=== PATIENT | male | born 2000 | race African-American/Black ===

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

== ENCOUNTER 2020-05-23 15:39 | Emergency (ER) | payer OTHER ==
--- OUTSIDE RECORDS SUMMARY | 2020-05-23 15:44 | XMS REPORT | Continuity of Care Document ---
:2000 Author Organization [facility] Address [address] [place] [address] Dr. Gold [address] [place] [id number] Care Team Providers Name Role Phone Unavailable Unavailable Unavailable Problems This patient has no known problems. Allergies, Adverse Reactions, Alerts This patient has no known allergies or adverse reactions. Medications This patient has no known medications. Procedures This patient has no known procedures. Results This patient has no known results.
[2020-05-23] MEDS ORDERED: IBUPROFEN 400 MG TAB ONE (16:39)
[2020-05-23] MEDS ORDERED: IBUPROFEN 200 MG TAB PO ONE (16:39)
--- NOTE | 2020-05-23 16:51 | RAD REPORT ---
EXAM DESCRIPTION: RAD - Hand Left 3 View - 05/23/2020 4:20 pm CLINICAL HISTORY: PAIN COMPARISON: No comparisons FINDINGS: No bone or joint abnormality detected.
--- NOTE | 2020-05-23 16:53 | EDPHYS ---
Physician Documentation [facility] Name: Vicente Villeda Age: 19 yrs Sex: Male : 2000 Arrival Date: 05/23/2020 Time: 15:50 Bed 15 Private MD: ED Physician Cali Ellison HPI: 05/23 16:16 This 19 yrs old Black Male presents to ER via Ambulatory with complaints of Arm Pain, kb Numbness Of Arm. 16:16 The complaints affect the. The patient has not experienced similar symptoms in the kb past. The patient has not recently seen a physician. 16:20 The patient or guardian reports pain, tingling. The complaints affect the dorsal aspect kb of distal phalanx of left middle finger. Context: The problem was sustained at an unknown location, resulted from an unknown cause. Onset: The symptoms/episode began/occurred today. Modifying factors: The symptoms are alleviated by nothing, the symptoms are aggravated by movement, palpation. Associated signs and symptoms: The patient has no apparent associated signs or symptoms. Severity of symptoms: At their worst the symptoms were mild, in the emergency department the symptoms are unchanged. Historical: - Allergies: 15:55 No Known Allergies; ll1 - PMHx: 15:55 ADD/ADHD; Asthma; ll1 - PSHx: 15:55 None; ll1 - Immunization history:: Flu vaccine is up to date. - Social history:: Smoking status: Patient reports the use of cigarette tobacco products, smokes one-half pack cigarettes per day, Patient uses alcohol, only on a social basis. street drugs, marijuana, Patient/guardian denies using IV drugs. ROS: 16:14 Constitutional: Negative for fever, chills, and weight loss, Cardiovascular: Negative kb for chest pain, palpitations, and edema, Respiratory: Negative for shortness of breath, cough, wheezing, and pleuritic chest pain, Abdomen/GI: Negative for abdominal pain, nausea, vomiting, diarrhea, and constipation, Back: Negative for injury and pain, Skin: Negative for injury, rash, and discoloration, Neuro: Negative for headache, weakness, numbness, tingling, and seizure. 16:14 MS/extremity: Positive for pain, paresthesias, of the dorsal aspect of distal phalanx of left middle finger. Exam: 16:14 Constitutional: This is a well developed, well nourished patient who is awake, alert, kb and in no acute distress. Head/Face: Normocephalic, atraumatic. Chest/axilla: Normal chest wall appearance and motion. Nontender with no deformity. No lesions are appreciated. Cardiovascular: Regular rate and rhythm with a normal S1 and S2. No gallops, murmurs, or rubs. Normal PMI, no JVD. No pulse deficits. Respiratory: Lungs have equal breath sounds bilaterally, clear to auscultation and percussion. No rales, rhonchi or wheezes noted. No increased work of breathing, no retractions or nasal flaring. Abdomen/GI: Soft, non-tender, with normal bowel sounds. No distension or tympany. No guarding or rebound. No evidence of tenderness throughout. Skin: Warm, dry with normal turgor. Normal color with no rashes, no lesions, and no evidence of cellulitis. MS/ Extremity: Pulses equal, no cyanosis. Neurovascular intact. Full, normal range of motion. Neuro: Awake and alert, GCS 15, oriented to person, place, time, and situation. Cranial nerves II-XII grossly intact. Motor strength 5/5 in all extremities. Sensory grossly intact. Cerebellar exam normal. Normal gait. Vital Signs: 15:56 BP 105 / 54; Pulse 68; Resp 17; Temp 98.7; Pulse Ox 98% ; Weight 68.04 kg; Height 5 ft. ll1 7 in. (170.18 cm); Pain 7/10; 17:13 BP 117 / 59; Pulse 51; Resp 17; Pulse Ox 99% on R/A; tw2 15:56 Body Mass Index 23.49 (68.04 kg, 170.18 cm) ll1 MDM: 15:58 Patient medically screened. kb 16:14 Data reviewed: vital signs, nurses notes. Data interpreted: Pulse oximetry: on room air kb is 98 %. Interpretation: normal. 16:15 ED course: Pt reports pain upon palpation of distal left third digit. States sensation kb is decreased to proximal left third digit. No redness, swelling, warmth or other signs of infection, no signs of trauma. . 16:52 Counseling: I had a detailed discussion with the patient and/or guardian regarding: the kb historical points, exam findings, and any diagnostic results supporting the discharge/admit diagnosis, radiology results, the need for outpatient follow up, a family practitioner, to return to the emergency department if symptoms worsen or persist or if there are any questions or concerns that arise at home. 05/23 16:02 Order name: Hand Left 3 View XRAY kb 05/23 16:52 Order name: RAD; Complete Time: 16:52 EDMS Administered Medications: 16:31 Drug: Ibuprofen 600 mg Route: PO; tw2 17:13 Follow up: Response: No adverse reaction tw2 Disposition: 05/24 07:58 Co-signature as Attending Physician, Cali Ellison MD I agree with the assessment and kdr plan of care. Disposition: 05/23/20 16:53 Discharged to Home. Impression: Pain in left finger(s). - Condition is Stable. - Discharge Instructions: Musculoskeletal Pain. - Medication Reconciliation Form, Thank You Letter, Antibiotic Education, Prescription Opioid Use, Work release form form. - Follow up: Emergency Department; When: As needed; Reason: Worsening of condition. Follow up: Private Physician; When: 2 - 3 days; Reason: Recheck today's complaints, Continuance of care, Re-evaluation by your physician. Signatures: Dispatcher [employer] EDMS Radha Chandra, VIDEOTAPE SALES REPRESENTATIVE-C VIDEOTAPE SALES REPRESENTATIVE-Cali Rodriguez MD MD kdr Dacia Torres RN RN tw2 Fam Serrano RN RN ll1 Corrections: (The following items were deleted from the chart) 05/23 17:14 16:53 05/23/2020 16:53 Discharged to Home. Impression: Pain in left finger(s). tw2 Condition is Stable. Forms are Work release form, Medication Reconciliation Form, Thank You Letter, Antibiotic Education, Prescription Opioid Use. Follow up: Emergency Department; When: As needed; Reason: Worsening of condition. Follow up: Private Physician; When: 2 - 3 days; Reason: Recheck today's complaints, Continuance of care, Re-evaluation by your physician. kb
--- NOTE | 2020-05-23 16:53 | ER ---
Nurse's Notes [facility] Name: Vicente Villeda Age: 19 yrs Sex: Male : 2000 Arrival Date: 05/23/2020 Time: 15:50 Bed 15 Private MD: Diagnosis: Pain in left finger(s) Presentation: 05/23 15:56 Chief complaint: Patient states: Left hand middle finger sharp stinging pain noticed ll1 today while working. No strenuous activity or trauma. Works outside at [employer]. States left hand feels numb/tingling. Coronavirus screen: Client denies travel out of the [place] in the last 14 days. At this time, the client does not indicate any symptoms associated with coronavirus-19. Ebola Screen: Patient denies travel to an Ebola-affected area in the 21 days before illness onset. Initial Sepsis Screen: Does the patient meet any 2 criteria? No. Patient's initial sepsis screen is negative. Risk Assessment: Do you want to hurt yourself or someone else? Patient reports no desire to harm self or others. Onset of symptoms was May 23, 2020. 15:56 Method Of Arrival: Ambulatory ll1 15:56 Acuity: ALICE 4 ll1 Historical: - Allergies: 15:55 No Known Allergies; ll1 - PMHx: 15:55 ADD/ADHD; Asthma; ll1 - PSHx: 15:55 None; ll1 - Immunization history:: Flu vaccine is up to date. - Social history:: Smoking status: Patient reports the use of cigarette tobacco products, smokes one-half pack cigarettes per day, Patient uses alcohol, only on a social basis. street drugs, marijuana, Patient/guardian denies using IV drugs. Screenin:33 Abuse screen: Denies threats or abuse. Nutritional screening: No deficits noted. tw2 Tuberculosis screening: No symptoms or risk factors identified. Fall Risk None identified. Assessment: 16:33 Reassessment: Patient appears in no apparent distress at this time. No changes from tw2 previously documented assessment. Patient and/or family updated on plan of care and expected duration. Pain level reassessed. Patient is alert, oriented x 3, equal unlabored respirations, skin warm/dry/pink. 16:35 General: Appears in no apparent distress. slender, well groomed, Behavior is calm, tw2 cooperative, appropriate for age. Pain: Complains of pain in dorsal aspect of distal phalanx of left middle finger. Neuro: Level of Consciousness is awake, alert, obeys commands, Oriented to person, place, time, situation. Cardiovascular: Capillary refill < 3 seconds Patient's skin is warm and dry. Respiratory: No deficits noted. Airway is patent Respiratory effort is even, unlabored. GI: No signs and/or symptoms were reported involving the gastrointestinal system. : No signs and/or symptoms were reported regarding the genitourinary system. EENT: No signs and/or symptoms were reported regarding the EENT system. Derm: No signs and/or symptoms reported regarding the dermatologic system. Musculoskeletal: Circulation, motion, and sensation intact. Range of motion: intact in all extremities. 17:13 Reassessment: Patient appears in no apparent distress at this time. No changes from tw2 previously documented assessment. Patient and/or family updated on plan of care and expected duration. Pain level reassessed. Patient is alert, oriented x 3, equal unlabored respirations, skin warm/dry/pink. Vital Signs: 15:56 BP 105 / 54; Pulse 68; Resp 17; Temp 98.7; Pulse Ox 98% ; Weight 68.04 kg; Height 5 ft. ll1 7 in. (170.18 cm); Pain 7/10; 17:13 BP 117 / 59; Pulse 51; Resp 17; Pulse Ox 99% on R/A; tw2 15:56 Body Mass Index 23.49 (68.04 kg, 170.18 cm) ll1 ED Course: 15:50 Patient arrived in ED. fj1 15:57 Triage completed. ll1 15:58 Radha Chandra FNP-C [facility]. kb 15:58 Cali Ellison MD is Attending Physician. kb 15:58 Arm band placed on Patient placed in an exam room, on a stretcher. ll1 15:58 Bed in low position. Call light in reach. Pulse ox on. NIBP on. tw2 16:27 Dacia Torres, FELIPE is Primary Nurse. tw2 17:14 No provider procedures requiring assistance completed. Patient did not have IV access tw2 during this emergency room visit. Administered Medications: 16:31 Drug: Ibuprofen 600 mg Route: PO; tw2 17:13 Follow up: Response: No adverse reaction tw2 Outcome: 16:53 Discharge ordered by MD. bello 17:14 Discharged to home ambulatory. tw2 17:14 Condition: stable 17:14 Discharge instructions given to patient, Instructed on discharge instructions, follow up and referral plans. Demonstrated understanding of instructions, follow-up care. 17:14 Patient left the ED. tw2 Signatures: Radha Chandra, MED PEDS-C MED PEDS-Dacia Kumar RN RN tw2 Jim Purdy fj1 Fam Serrano RN RN ll1
[2020-05-23 17:24] VITALS: TEMP 98.7
[2020-05-23 17:25] VITALS: BP 117/59; O2SAT 99
== END 2020-05-23 17:14 | disposition home or self-care (01) ==
LOC: ER 15:39
DX: M79.645 Pain in left finger(s) (principal); F17.210 Nicotine dependence, cigarettes, uncomplicated; F12.90 Cannabis use, unspecified, uncomplicated
CPT/HCPCS: 99283

== ENCOUNTER 2020-05-25 01:35 | Emergency (ER) | payer OTHER ==
--- OUTSIDE RECORDS SUMMARY | 2020-05-25 01:37 | XMS REPORT | Continuity of Care Document ---
:2000 Author Organization [facility] t Address [address] [place] [address] Care Team Providers Name Role Phone Unavailable Unavailable Unavailable Problems This patient has no known problems. Allergies, Adverse Reactions, Alerts This patient has no known allergies or adverse reactions. Medications This patient has no known medications. Procedures This patient has no known procedures. Results This patient has no known results.
[2020-05-25 02:30] LABS: Urine Blood TRACE (NEG); Urine Glucose NEGATIVE (NEG); Urine Protein NEGATIVE (NEG)
--- NOTE | 2020-05-25 02:54 | ER ---
Nurse's Notes [facility] Name: Vicente Villeda Age: 19 yrs Sex: Male : 2000 Arrival Date: 05/25/2020 Time: 01:38 Bed 20 Private MD: Joey Vasques H Diagnosis: Pain in left hip Presentation: 05/25 01:46 Chief complaint: Patient states: Pt reports he started having left hip pain yesterday. ea Denies injury to area. Coronavirus screen: At this time, the client does not indicate any symptoms associated with coronavirus-19. Ebola Screen: No symptoms or risks identified at this time. Initial Sepsis Screen: Does the patient meet any 2 criteria? No. Patient's initial sepsis screen is negative. Does the patient have a suspected source of infection? No. Patient's initial sepsis screen is negative. Risk Assessment: Do you want to hurt yourself or someone else? Patient reports no desire to harm self or others. Onset of symptoms was May 25, 2020. 01:46 Method Of Arrival: Ambulatory ea 01:46 Acuity: ALICE 3 ea Historical: - Allergies: 01:49 No Known Allergies; ea - Home Meds: 01:49 ADHD medication [Active]; ea - PMHx: 01:49 Asthma; ADD/ADHD; ea - PSHx: 01:49 None; ea - Immunization history:: Adult Immunizations up to date. - Social history:: Smoking status: unknown. Screenin:48 Abuse screen: Denies threats or abuse. Nutritional screening: No deficits noted. ea Tuberculosis screening: No symptoms or risk factors identified. Fall Risk None identified. Assessment: 01:55 General: Appears in no apparent distress. Behavior is calm, cooperative, appropriate wh for age. Pain: Complains of pain in left hip and left low back Pain does not radiate. Pain currently is 9 out of 10 on a pain scale. Quality of pain is described as aching, Pain began suddenly. Neuro: Level of Consciousness is awake, alert, obeys commands, Oriented to person, place, time, situation, Appropriate for age. Cardiovascular: Capillary refill < 3 seconds. Respiratory: Airway is patent Respiratory effort is even, unlabored, Respiratory pattern is regular, symmetrical. GI: Abdomen is flat, non-distended. : No signs and/or symptoms were reported regarding the genitourinary system. EENT: No signs and/or symptoms were reported regarding the EENT system. Derm: Skin is intact, is healthy with good turgor, Skin is pink, warm \T\ dry. normal. Musculoskeletal: Circulation, motion, and sensation intact. 02:53 Reassessment: Patient appears in no apparent distress at this time. No changes from previously documented assessment. Patient and/or family updated on plan of care and expected duration. Pain level reassessed. Patient is alert, oriented x 3, equal unlabored respirations, skin warm/dry/pink. Vital Signs: 01:46 BP 114 / 66; Pulse 53; Resp 18; Pulse Ox 99% ; Weight 72.57 kg; Height 5 ft. 6 in. ea (167.64 cm); 02:54 BP 115 / 65; Pulse 48; Resp 18; Pulse Ox 98% ; wh 01:46 Body Mass Index 25.82 (72.57 kg, 167.64 cm) ED Course: 01:38 Patient arrived in ED. es 01:39 Joey Vasques DO is Private Physician. es 01:41 [facility]C [facility] kb 01:41 Shabbir Araiza MD is Attending Physician. kb 01:46 Samra Jean Baptiste is Primary Nurse. wh 01:48 Triage completed. ea 01:49 Arm band placed on right wrist. Patient placed in an exam room, in a wheelchair, on ea pulse oximetry. 01:49 Patient has correct armband on for positive identification. Bed in low position. Call ea light in reach. 03:06 No provider procedures requiring assistance completed. Patient did not have IV access during this emergency room visit. Administered Medications: 02:49 Drug: TORadol 30 mg Route: IM; Site: right gluteus; 03:07 Follow up: Response: No adverse reaction; Pain is decreased Outcome: 02:54 Discharge ordered by . kb 03:06 Discharged to home via wheelchair. wh 03:06 Condition: stable 03:06 Discharge instructions given to patient, Instructed on discharge instructions, follow up and referral plans. medication usage, POC Demonstrated understanding of instructions, follow-up care, medications, POC Prescriptions given X 2. 03:07 Patient left the ED. Signatures: Radha Chandra FNP-C [employer] [employer] Blanca Kang Elena, RN RN Samra Goldstein
--- NOTE | 2020-05-25 02:54 | EDPHYS ---
Physician Documentation [facility] Name: Vicente Villeda Age: 19 yrs Sex: Male : 2000 Arrival Date: 05/25/2020 Time: 01:38 Bed 20 Private MD: Joey Vasques H ED Physician Shabbir Araiza HPI: 05/25 01:49 This 19 yrs old Black Male presents to ER via Ambulatory with complaints of Flank Pain. kb 01:49 The patient or guardian reports pain. that occurred at home, sustained from unknown kb reason, There is no obvious deformity, The patient is able to self ambulate. The patient is able to bear their full body weight. There is no radiation of the patient's discomfort. The complaints affect the left hip. Onset: The symptoms/episode began/occurred just prior to arrival. Modifying factors: The symptoms are alleviated by nothing, the symptoms are aggravated by flexion, weight bearing. Associated signs and symptoms: Loss of consciousness: the patient experienced no loss of consciousness, Pertinent positives: None. Pertinent negatives: abdominal pain, altered mental status, anorexia, chest pain, diarrhea, dizziness, dysuria, fever, headache, incontinence, nausea, shortness of breath, vomiting, weakness. Severity of symptoms: At their worst the symptoms were moderate, in the emergency department the symptoms are unchanged. The patient has not experienced similar symptoms in the past. The patient has not recently seen a physician. Pt reports he woke up with pain to left hip. Denies injury/trauma. Denies urinary symptoms or flank pain. . Historical: - Allergies: :49 No Known Allergies; ea - Home Meds: :49 ADHD medication [Active]; ea - PMHx: 01:49 Asthma; ADD/ADHD; ea - PSHx: 01:49 None; ea - Immunization history:: Adult Immunizations up to date. - Social history:: Smoking status: unknown. ROS: 01:47 Constitutional: Negative for fever, chills, and weight loss, Cardiovascular: Negative kb for chest pain, palpitations, and edema, Respiratory: Negative for shortness of breath, cough, wheezing, and pleuritic chest pain, Abdomen/GI: Negative for abdominal pain, nausea, vomiting, diarrhea, and constipation, Skin: Negative for injury, rash, and discoloration, Neuro: Negative for headache, weakness, numbness, tingling, and seizure. 01:47 Back: Positive for pain at rest, pain with movement, of the left low back. 01:47 MS/extremity: Positive for pain, tenderness, of the left hip. Exam: 01:47 Constitutional: This is a well developed, well nourished patient who is awake, alert, kb and in no acute distress. Head/Face: Normocephalic, atraumatic. Chest/axilla: Normal chest wall appearance and motion. Nontender with no deformity. No lesions are appreciated. Cardiovascular: Regular rate and rhythm with a normal S1 and S2. No gallops, murmurs, or rubs. Normal PMI, no JVD. No pulse deficits. Respiratory: Lungs have equal breath sounds bilaterally, clear to auscultation and percussion. No rales, rhonchi or wheezes noted. No increased work of breathing, no retractions or nasal flaring. Abdomen/GI: Soft, non-tender, with normal bowel sounds. No distension or tympany. No guarding or rebound. No evidence of tenderness throughout. Skin: Warm, dry with normal turgor. Normal color with no rashes, no lesions, and no evidence of cellulitis. Neuro: Awake and alert, GCS 15, oriented to person, place, time, and situation. Cranial nerves II-XII grossly intact. Motor strength 5/5 in all extremities. Sensory grossly intact. Cerebellar exam normal. Normal gait. 01:47 Back: pain, that is moderate, of the left low back, ROM is normal, normal spinal alignment noted, CVA tenderness, is absent. 01:47 Musculoskeletal/extremity: Extremities: grossly normal except: noted in the left hip: pain, tenderness, ROM: limited passive range of motion due to pain, in the left hip, Circulation is intact in all extremities. Sensation intact. Weight bearing: able to fully bear weight. Vital Signs: 01:46 BP 114 / 66; Pulse 53; Resp 18; Pulse Ox 99% ; Weight 72.57 kg; Height 5 ft. 6 in. ea (167.64 cm); 02:54 BP 115 / 65; Pulse 48; Resp 18; Pulse Ox 98% ; wh 01:46 Body Mass Index 25.82 (72.57 kg, 167.64 cm) ea MDM: 01:41 Patient medically screened. kb 01:45 Data reviewed: vital signs, nurses notes. Data interpreted: Pulse oximetry: on room air kb is 100 %. Interpretation: normal. 02:53 Counseling: I had a detailed discussion with the patient and/or guardian regarding: the kb historical points, exam findings, and any diagnostic results supporting the discharge/admit diagnosis, lab results, radiology results, the need for outpatient follow up, a family practitioner, to return to the emergency department if symptoms worsen or persist or if there are any questions or concerns that arise at home. 05/25 02:17 Order name: Urine Dipstick--Ancillary (enter results) tt3 05/25 02:31 Order name: Urine Dipstick-Ancillary; Complete Time: 02:32 EDMS 05/25 01:44 Order name: Urine Dipstick-Ancillary (obtain specimen); Complete Time: 02:14 kb 05/25 01:44 Order name: Hip Left 2 View XRAY kb 05/25 02:11 Order name: CT Stone Protocol kb Administered Medications: 02:49 Drug: TORadol 30 mg Route: IM; Site: right gluteus; wh 03:07 Follow up: Response: No adverse reaction; Pain is decreased Disposition: 05:51 Co-signature as Attending Physician, Shabbir Araiza MD. [email or web address] Disposition: 05/25/20 02:54 Discharged to Home. Impression: Pain in left hip. - Condition is Stable. - Discharge Instructions: Musculoskeletal Pain. - Prescriptions for Ibuprofen 600 mg Oral Tablet - take 1 tablet by ORAL route every 6 hours As needed take with food; 30 tablet. Cyclobenzaprine 10 mg Oral Tablet - take 1 tablet by ORAL route every 8 hours As needed; 21 tablet. - Medication Reconciliation Form, Thank You Letter, Antibiotic Education, Prescription Opioid Use, Work release form form. - Follow up: Emergency Department; When: As needed; Reason: Worsening of condition. Follow up: Private Physician; When: 2 - 3 days; Reason: Recheck today's complaints, Continuance of care, Re-evaluation by your physician. Signatures: Dispatcher [employer] EDUT Radha Chandra, Rachele Castano, Samra Abad RN, ea, Maurice, MD MD [email or web address] Corrections: (The following items were deleted from the chart) 03:07 02:54 05/25/2020 02:54 Discharged to Home. Impression: Pain in left hip. Condition is wh Stable. Forms are Medication Reconciliation Form, Thank You Letter, Antibiotic Education, Prescription Opioid Use. Follow up: Emergency Department; When: As needed; Reason: Worsening of condition. Follow up: Private Physician; When: 2 - 3 days; Reason: Recheck today's complaints, Continuance of care, Re-evaluation by your physician. kb
[2020-05-25] MEDS ORDERED: KETOROLAC 30 MG/ML INJ ONE (02:55)
[2020-05-25 03:14] VITALS: BP 115/65; O2SAT 98
--- NOTE | 2020-05-25 08:00 | RAD REPORT ---
EXAM DESCRIPTION: RAD - Hip Left 2 View - 05/25/2020 2:19 am CLINICAL HISTORY: PAIN COMPARISON: No comparisons FINDINGS: AP and frogleg views of the left hip were obtained. There is no fracture or dislocation. No acute or destructive bony process seen. No joint effusion con firmed. Slight flattening of the femoral head near the fovea is not outside of normal range. No soft tissue abnormality. IMPRESSION: Negative left hip examination for acute or significant findings.
--- NOTE | 2020-05-27 12:35 | RAD REPORT ---
EXAM DESCRIPTION: CT - Stone Protocol - 05/25/2020 2:28 am CLINICAL HISTORY: FLANK PAIN COMPARISON: None Available. TECHNIQUE: CT of the abdomen and pelvis without IV contrast. Evaluation of the solid organs and vasc ulature is suboptimal due to lack of IV contrast. FINDINGS: Lung Bases: The visualized lung bases are clear. Bones: No destructive bone lesions identified. Abdomen: Liver: The liver has normal size and density. Gallbladder: No calcified gallstones. Spleen, Pancreas, and Adrenal Glands: The spleen, pancreas, and adrenal glands are unremarkable. Kidneys: The kidneys have normal size without evidence of hydronephrosis. No obstructing ureteral lisha culi. Small left renal cyst. Vasculature: The aorta and IVC have normal caliber and position. Stomach: The stomach and duodenum have normal course. Other: No free intraperitoneal air. No free fluid or lymphadenopathy. Pelvis: Bladder: Mild wall thickening of the urinary bladder. Bowel: No dilated loops of large or small bowel. Appendix: Not identified. Pelvis: Prostate is not enlarged. IMPRESSION: 1. Mild wall thickening of the urinary bladder could be seen with cystitis. 2. No obstructing calculus identified. This exam was performed according to our departmental dose-optimization program, which includes autom ated exposure control, adjustment of the mA and/or kV according to patient size and/or use of iterati ve reconstruction technique. Electronically signed by: Albert Aguirre 05/25/2020 2:48 AM CDT Due to temporary technical issues with the PACS/Fluency reporting system, reports are being signed by the in house radiologist without review as a courtesy to ensure prompt reporting. The interpreting r adiologist is fully responsible for the content of the report.
== END 2020-05-25 03:07 | disposition home or self-care (01) ==
LOC: ER 01:35
DX: M25.552 Pain in left hip (principal); F90.9 Attention-deficit hyperactivity disorder, unspecified type
CPT/HCPCS: 74176; 76377; 81003; 96372; 99283

== ENCOUNTER 2020-08-19 11:19 | Emergency (ER) | payer OTHER ==
--- OUTSIDE RECORDS SUMMARY | 2020-08-19 11:24 | XMS REPORT | Continuity of Care Document ---
:2000 Author Organization [facility] t Address [address] [place] [address] Care Team Providers Name Role Phone Unavailable Unavailable Unavailable Problems This patient has no known problems. Allergies, Adverse Reactions, Alerts This patient has no known allergies or adverse reactions. Medications This patient has no known medications. Procedures This patient has no known procedures. Results This patient has no known results.
[2020-08-19 12:07] LABS: Basophils % 0.6 % (0-1.3); Hematocrit 42.8 % (39.6-49.0); Lymphocytes % 35.2 % (15.3-44.8); MPV 10.6 fL (7.6-11.3); RBC Red Blood Cell Count 4.62 M/uL (4.33-5.43)
[2020-08-19 12:22] LABS: ALT/SGPT 13 U/L (12-78); AST/SGOT 12 U/L (15-37); Albumin 4.1 g/dL (3.4-5.0); Alkaline Phosphatase 81 U/L (45-117); BUN Blood Urea Nitrogen 11 mg/dL (7-18); Bicarbonate 27 mmol/L (21-32); Bilirubin Direct 0.1 mg/dL (0-0.2); Bilirubin Total 0.3 mg/dL (0.2-1.0); Glucose Level 102 mg/dL (74-106); Lipase 138 U/L (73-393); Potassium 4.1 mmol/L (3.5-5.1); Protein, Total 7.7 g/dL (6.4-8.2); Sodium Level 140 mmol/L (136-145)
[2020-08-19 12:35] LABS: White Blood Cell Scan OK (OK)
[2020-08-19 12:36] LABS: Blood Morphology Comment NOT SEEN (NOT SEEN); Platelet Estimate ADEQ; Platelets, Giant FEW
--- NOTE | 2020-08-19 13:10 | RAD REPORT ---
EXAM DESCRIPTION: CT - Abdomen Pelvis W Contrast - 08/19/2020 12:52 pm CLINICAL HISTORY: ABD PAIN COMPARISON: No comparisons TECHNIQUE: Biphasic, helical CT imaging of the abdomen and pelvis was performed following 100 ml non -ionic IV contrast. No oral contrast. All CT scans are performed using dose optimization technique as appropriate and may include automated exposure control or mA/KV adjustment according to patient size. FINDINGS: No suspicious findings in the lung bases. The liver, spleen, and pancreas show no suspicious findings. Gallbladder and biliary tree are also wi thout suspicious finding. Symmetric renal function is seen with no hydronephrosis or suspicious renal mass. No pyelonephritis o r acute parenchymal process. No bladder abnormalities. No adrenal abnormalities. No stomach or small bowel abnormality seen. Moderate stool volume fills but does not distend the righ t-side of the colon. Appendix is normal. Sigmoid is minimally redundant. No active colon process seen . No free air, free fluid or inflammatory stranding. No hernia, mass or bulky lymphadenopathy. No suspicious bony findings. IMPRESSION: Contrast enhanced CT abdomen and pelvis showing no significant or suspicious finding.
--- NOTE | 2020-08-19 13:24 | ER ---
Nurse's Notes [facility] Name: Vicente Villeda Age: 20 yrs Sex: Male : 2000 Arrival Date: 08/19/2020 Time: 11:23 Bed 20 Private MD: Joey Vasques H Diagnosis: Generalized abdominal pain Presentation: 08/19 11:27 Chief complaint: Patient states: diffuse abd pain, back pain only when he's trying to sv have a BM since Wednesday. Coronavirus screen: Client denies travel out of the [place] in the last 14 days. At this time, the client does not indicate any symptoms associated with coronavirus-19. Ebola Screen: No symptoms or risks identified at this time. Risk Assessment: Do you want to hurt yourself or someone else? Patient reports no desire to harm self or others. Onset of symptoms was August 16, 2020. 11:27 Method Of Arrival: Ambulatory sv 11:27 Acuity: ALICE 3 sv 11:28 Initial Sepsis Screen: Does the patient meet any 2 criteria? No. Patient's initial sv sepsis screen is negative. Does the patient have a suspected source of infection? No. Patient's initial sepsis screen is negative. Historical: - Allergies: 11:28 No Known Allergies; sv - PMHx: 11:28 ADD/ADHD; Asthma; sv - PSHx: 11:28 None; sv - Immunization history:: Flu vaccine is not up to date. - Social history:: Smoking status: Patient reports the use of cigarette tobacco products, smokes one-half pack cigarettes per day. Screenin:32 Abuse screen: Denies threats or abuse. Nutritional screening: No deficits noted. ll1 Tuberculosis screening: No symptoms or risk factors identified. Fall Risk IV access (20 points). Total Bone Fall Scale indicates No Risk (0-24 pts). Assessment: 11:55 General: Appears in no apparent distress. Behavior is calm, cooperative, appropriate ll1 for age. Pain: Denies pain. Neuro: No deficits noted. Cardiovascular: No deficits noted. Respiratory: No deficits noted. GI: Bowel sounds present X 4 quads. Abd is soft and non tender X 4 quads. Reports diarrhea, bilateral flank pains with BM. : Denies burning with urination, urinary frequency. 12:50 Reassessment: Patient and/or family updated on plan of care and expected duration. Pain ll1 level reassessed. Patient is alert, oriented x 3, equal unlabored respirations, skin warm/dry/pink. 13:42 Reassessment: Patient and/or family updated on plan of care and expected duration. Pain ll1 level reassessed. Patient is alert, oriented x 3, equal unlabored respirations, skin warm/dry/pink. Vital Signs: 11:28 BP 125 / 72; Pulse 88; Resp 16; Temp 97.6; Pulse Ox 99% ; Weight 67.13 kg; Height 5 ft. sv 5 in. (165.10 cm); 13:41 BP 115 / 68; Pulse 56; Resp 16; Pulse Ox 99% ; ll1 11:28 Body Mass Index 24.63 (67.13 kg, 165.10 cm) sv ED Course: 11:23 Patient arrived in ED. mr 11:23 Joey Vasques DO is Private Physician. mr 11:27 Arm band placed on. sv 11:28 Triage completed. sv 11:31 Fam Serrano, RN is Primary Nurse. ll1 11:32 Patient placed in an exam room, on a stretcher. ll1 11:32 Patient has correct armband on for positive identification. Bed in low position. Call ll1 light in reach. Side rails up X 1. 11:39 Arash Mcclelland PA is PHCP. jr8 11:39 Maurizio Mckeon MD is Attending Physician. jr8 11:56 Inserted saline lock: 20 gauge in right antecubital area, using aseptic technique. ll1 Blood collected. 12:52 CT Abd/Pelvis - IV Contrast Only In Process Unspecified. EDMS 13:23 Joey Vasques DO is Referral Physician. jr8 13:41 Patient did not have IV access during this emergency room visit. intact, bleeding ll1 controlled, No redness/swelling at site. Pressure dressing applied. 13:43 No provider procedures requiring assistance completed. ll1 Administered Medications: No medications were administered Outcome: 13:23 Discharge ordered by . jr8 13:44 Discharged to home ambulatory. ll1 13:44 Condition: stable 13:44 Discharge instructions given to patient, Instructed on discharge instructions, follow up and referral plans. Demonstrated understanding of instructions, follow-up care. 13:44 Patient left the ED. ll1 Signatures: Dispatcher [employer] Mary Beth Epstein RN RN lionel DialaEdelmira mr Arash Mcclelland PA PA jr8 Lewis, Lynsay, RN RN ll1 Corrections: (The following items were deleted from the chart) 11:30 11:28 Pulse 88bpm; Resp 16bpm; Pulse Ox 99%; Temp 97.6F; 67.13 kg; Height 5 ft. 5 in.; sv BMI: 24.6; sv
--- NOTE | 2020-08-19 13:24 | EDPHYS ---
Physician Documentation [facility] Name: Vicente Villeda Age: 20 yrs Sex: Male : 2000 Arrival Date: 08/19/2020 Time: 11:23 Bed 20 Private MD: Joey Vasques H ED Physician Maurizio Mckeon HPI: 08/19 12:33 This 20 yrs old Black Male presents to ER via Ambulatory with complaints of Abdominal jr8 Pain. 12:33 The patient presents with abdominal pain right and left lateral abdomen. Onset: The jr8 symptoms/episode began/occurred gradually, 3 day(s) ago. The symptoms do not radiate. Associated signs and symptoms: none. The symptoms are described as crampy. Modifying factors: The symptoms are alleviated by nothing, the symptoms are aggravated by bowel movements. Severity of pain: At its worst the pain was mild. The patient has not experienced similar symptoms in the past. The patient has not recently seen a physician. bilateral abdominal pain at the flank regions with bowel movements. Denies n/v/d, blood or mucous in stools. No fevers . Historical: - Allergies: 11:28 No Known Allergies; sv - PMHx: 11:28 ADD/ADHD; Asthma; sv - PSHx: 11:28 None; sv - Immunization history:: Flu vaccine is not up to date. - Social history:: Smoking status: Patient reports the use of cigarette tobacco products, smokes one-half pack cigarettes per day. ROS: 12:33 Eyes: Negative for injury, pain, redness, and discharge, ENT: Negative for injury, jr8 pain, and discharge, Neck: Negative for injury, pain, and swelling, Cardiovascular: Negative for chest pain, palpitations, and edema, Respiratory: Negative for shortness of breath, cough, wheezing, and pleuritic chest pain, Back: Negative for injury and pain, MS/Extremity: Negative for injury and deformity, Skin: Negative for injury, rash, and discoloration, Neuro: Negative for headache, weakness, numbness, tingling, and seizure. 12:33 Abdomen/GI: Positive for abdominal pain, abdominal cramps, Negative for nausea, vomiting, and diarrhea, constipation, abdominal distension, anorexia, hematemesis, black/tarry stool, rectal pain, rectal bleeding, bowel incontinence, flatulence. Exam: 12:33 Eyes: Pupils equal round and reactive to light, extra-ocular motions intact. Lids and jr8 lashes normal. Conjunctiva and sclera are non-icteric and not injected. Cornea within normal limits. Periorbital areas with no swelling, redness, or edema. ENT: Nares patent. No nasal discharge, no septal abnormalities noted. Tympanic membranes are normal and external auditory canals are clear. Oropharynx with no redness, swelling, or masses, exudates, or evidence of obstruction, uvula midline. Mucous membranes moist. Neck: Trachea midline, no thyromegaly or masses palpated, and no cervical lymphadenopathy. Supple, full range of motion without nuchal rigidity, or vertebral point tenderness. No Meningismus. Cardiovascular: Regular rate and rhythm with a normal S1 and S2. No gallops, murmurs, or rubs. Normal PMI, no JVD. No pulse deficits. Respiratory: Lungs have equal breath sounds bilaterally, clear to auscultation and percussion. No rales, rhonchi or wheezes noted. No increased work of breathing, no retractions or nasal flaring. Back: No spinal tenderness. No costovertebral tenderness. Full range of motion. Skin: Warm, dry with normal turgor. Normal color with no rashes, no lesions, and no evidence of cellulitis. MS/ Extremity: Pulses equal, no cyanosis. Neurovascular intact. Full, normal range of motion. Neuro: Awake and alert, GCS 15, oriented to person, place, time, and situation. Cranial nerves II-XII grossly intact. Motor strength 5/5 in all extremities. Sensory grossly intact. Cerebellar exam normal. Normal gait. 12:33 Abdomen/GI: Inspection: abdomen appears normal, Bowel sounds: active, all quadrants, Palpation: soft, in all quadrants, mild abdominal tenderness, in the anterior aspect of left lateral abdomen and anterior aspect of right lateral abdomen, mass, is not appreciated, rebound tenderness, is not appreciated, voluntary guarding, is not appreciated, involuntary guarding, is not appreciated, no appreciated organomegaly, Indicators: McBurney's point is not tender, Cho's sign is negative, Rovsing's sign is negative, Liver: tenderness, is not appreciated. Vital Signs: 11:28 BP 125 / 72; Pulse 88; Resp 16; Temp 97.6; Pulse Ox 99% ; Weight 67.13 kg; Height 5 ft. sv 5 in. (165.10 cm); 13:41 BP 115 / 68; Pulse 56; Resp 16; Pulse Ox 99% ; ll1 11:28 Body Mass Index 24.63 (67.13 kg, 165.10 cm) sv MDM: 11:40 Patient medically screened. jr8 11:52 Patient medically screened. steve 13:23 Data reviewed: vital signs, nurses notes, lab test result(s), radiologic studies, CT jr8 scan. Data interpreted: Pulse oximetry: on room air is 99 %. Interpretation: normal. 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 Special discussion: Based on the patient's Hx, exam, and Dx evaluation, there is no indication for emergent surgery or inpatient Tx. It is understood by the patient/guardian that if the Sx's persist or worsen they need to return immediately for re-evaluation. 08/19 11:40 Order name: Basic Metabolic Panel; Complete Time: 12:31 8 08/19 11:40 Order name: CBC with Diff; Complete Time: 13:05 8 08/19 11:40 Order name: Hepatic Function; Complete Time: 12:31 jr8 08/19 11:40 Order name: Lipase; Complete Time: 12:31 [facility] 08/19 12:10 Order name: CBC Smear Scan; Complete Time: 13:05 [facility] 08/19 13:27 Order name: Urine Dipstick--Ancillary (enter results) bd 08/19 11:40 Order name: IV Saline Lock; Complete Time: 11:43 8 08/19 11:40 Order name: Labs collected and sent; Complete Time: 11:43 8 08/19 11:40 Order name: Urine Dipstick-Ancillary (obtain specimen); Complete Time: 13:21 8 08/19 12:31 Order name: CT Abd/Pelvis - IV Contrast Only; Complete Time: 13: jr8 Administered Medications: No medications were administered Disposition: 14:23 Co-signature as Attending Physician, Maurizio Mckeon MD I agree with the assessment and steve plan of care. Disposition: 08/19/20 13:23 Discharged to Home. Impression: Generalized abdominal pain. - Condition is Stable. - Discharge Instructions: Abdominal Pain, Adult. - Medication Reconciliation Form, Thank You Letter, Antibiotic Education, Prescription Opioid Use, Work release form form. - Follow up: Joey Vasques DO; When: 2 - 3 days; Reason: Recheck today's complaints, Continuance of care, Re-evaluation by your physician. - Problem is new. - Symptoms have improved. Signatures: Dispatcher [employer] EDMary Beth Brooks, RN RN Maurizio Alberts MD MD cha Roszak, Josh, PA PA jr8 Fam Serrano RN RN ll1 Corrections: (The following items were deleted from the chart) 13:44 13:23 08/19/2020 13:23 Discharged to Home. Impression: Generalized abdominal pain. ll1 Condition is Stable. Forms are Medication Reconciliation Form, Thank You Letter, Antibiotic Education, Prescription Opioid Use. Follow up: Joey Vasques; When: 2 - 3 days; Reason: Recheck today's complaints, Continuance of care, Re-evaluation by your physician. Problem is new. Symptoms have improved. jr8
[2020-08-19 13:44] LABS: Urine Blood NEGATIVE (NEG); Urine Glucose NEGATIVE (NEG); Urine Protein NEGATIVE (NEG); Urine Specific Gravity 1.015 (1.005-1.030)
[2020-08-19 13:54] VITALS: TEMP 97.6; O2SAT 99
[2020-08-19 13:55] VITALS: BP 115/68
== END 2020-08-19 13:44 | disposition home or self-care (01) ==
LOC: ER 11:19
DX: R10.84 Generalized abdominal pain (principal); F17.210 Nicotine dependence, cigarettes, uncomplicated
CPT/HCPCS: 85025; 80048; 36415; 80076; 81003; 83690; 74177; 99283; Q9967

== ENCOUNTER 2021-12-27 16:52 | Emergency (ER) | payer OTHER ==
--- OUTSIDE RECORDS SUMMARY | 2021-12-27 16:55 | XMS REPORT | Continuity of Care Document ---
:[address] [facility] t Address [address] [place] [address] [place] [id number] Care Team Providers Name Role Phone Unavailable Unavailable Unavailable Problems This patient has no known problems. Allergies, Adverse Reactions, Alerts This patient has no known allergies or adverse reactions. Medications This patient has no known medications. Procedures This patient has no known procedures. Results This patient has no known results.
[2021-12-27] MEDS ORDERED: LIDOCAINE 1% 20 ML MDV ONE (18:20)
[2021-12-27] MEDS ORDERED: TETANUS & DIPHTHERIA TOX,ADULT 0.5 ML VIAL ONE (18:26)
--- NOTE | 2021-12-27 19:07 | EDPHYS ---
Physician Documentation [facility] Name: Vicente Villeda Age: 21 yrs Sex: Male : 2000 Arrival Date: 12/27/2021 Time: 16:53 Bed 17 Private MD: ED Physician Maurizio Mckeon HPI: 12/27 19:02 This 21 yrs old Black Male presents to ER via Ambulatory with complaints of Hand Injury.[facility] 19:02 The patient or guardian reports injury, a laceration. The complaints affect the right [facility] hand. Onset: The symptoms/episode began/occurred acutely. Modifying factors: The symptoms are alleviated by nothing. Associated signs and symptoms: Pertinent negatives: decreased sensation distally, fever. Patient states that he cut himself with a tape dispenser. Denies other known injury. Unsure on tetanus immunization status.. Historical: - Allergies: 17:10 No Known Allergies; ww - PMHx: 17:10 ADD/ADHD; Asthma; ww - PSHx: 17:10 None; ww - Immunization history:: Last tetanus immunization: unknown. - Social history:: Smoking status: Patient reports the use of cigarette tobacco products, smokes one-half pack cigarettes per day. ROS: 19:02 Constitutional: Negative for fever, chills, and weight loss, Cardiovascular: Negative jm for chest pain, palpitations, and edema, Respiratory: Negative for shortness of breath, cough, wheezing, and pleuritic chest pain. 19:02 Skin: Positive for laceration(s). 19:02 All other systems are negative. Exam: 19:02 Constitutional: This is a well developed, well nourished patient who is awake, alert, jmm and in no acute distress. Head/Face: atraumatic. Eyes: EOMI, no conjunctival erythema appreciated ENT: Moist Mucus Membranes Neck: Trachea midline, Supple Chest/axilla: Normal chest wall appearance and motion. Cardiovascular: Regular rate and rhythm. No edema appreciated Respiratory: Normal respirations, no respiratory distress appreciated Abdomen/GI: Non distended, soft Back: Normal ROM 19:02 Skin: 1.5 cm laceration noted to the dorsal surface of the right hand. 19:02 Neuro: Orientation: is normal, Mentation: is normal, Memory: is normal. 19:02 Psych: Behavior/mood is pleasant, cooperative. Vital Signs: 17:09 BP 128 / 74; Pulse 53; Resp 18; Temp 98.4; Pulse Ox 100% ; Weight 68.04 kg; Height 5 ww ft. 5 in. (165.10 cm); Pain 9/10; 19:27 BP 121 / 70; Pulse 59; Resp 18; Pulse Ox 99% ; lr4 17:09 Body Mass Index 24.96 (68.04 kg, 165.10 cm) ww Laceration: 19:02 Wound Repair of 1.5cm ( 0.6in ) subcutaneous laceration to lateral aspect of right m hand. Distal neuro/vascular/tendon intact. Anesthesia: Local anesthetic administered with 2 mls of 1% lidocaine. Wound prep: Simple cleansing with betadine by me. Skin closed with 3 5-0 Prolene using simple sutures and sterile technique. Patient tolerated well. MDM: 17:33 Patient medically screened. [facility] 19:02 Data reviewed: vital signs, nurses notes. Counseling: I had a detailed discussion with [facility] the patient and/or guardian regarding: the historical points, exam findings, and any diagnostic results supporting the discharge/admit diagnosis, the need for outpatient follow up, to return to the emergency department if symptoms worsen or persist or if there are any questions or concerns that arise at home. ED course: Patient given wound infection return precautions. Patient otherwise given strict return precautions. Patient distributors plan of care.. Administered Medications: 18:18 Drug: Lidocaine (1 %) 20 ml {Note: given by provider.} Volume: 20 ml; Route: lr4 Infiltration; 18:18 Follow up: Response: No adverse reaction lr4 18:26 Drug: Tetanus-Diphtheria Toxoid Adult 0.5 ml {Area Manager: [employer]. Exp: lr4 03/07/2023. Lot #: [id number]. } Route: IM; Site: right deltoid; 19:08 Follow up: Response: No adverse reaction lr4 Disposition: 12/28 18:27 Co-signature as Attending Physician, Maurizio Mckeon MD I agree with the assessment and [facility] plan of care. Disposition Summary: 12/27/21 19:06 Discharge Ordered Location: Home [facility] Condition: Stable [facility] Diagnosis - Laceration of the Right Hand [facility] Followup: [facility] - With: Private Physician - When: 10 - 14 days - Reason: Recheck today's complaints, Continuance of care, Re-evaluation by your physician Discharge Instructions: - Discharge Summary Sheet jmm - Laceration Care, Adult jmm Forms: - Medication Reconciliation Form jmm - Thank You Letter ziyadm - Antibiotic Education ziyadm - Prescription Opioid Use jmm - Work release form lr4 Signatures: Maurizio Mckeon MD MD cha Mickail, Joel, PA PA jmm Wood, Whitney, RN RN ww Lalita Min RN RN lr4
--- NOTE | 2021-12-27 19:07 | ER ---
Nurse's Notes [facility] Name: Vicente Villeda Age: 21 yrs Sex: Male : 2000 Arrival Date: 12/27/2021 Time: 16:53 Bed 17 Private MD: Diagnosis: Laceration of the Right Hand Presentation: 12/27 17:09 Chief complaint: Patient states: right land laceration while at work today by boxing ww tape. Coronavirus screen: Vaccine status: Patient reports being unvaccinated. Client denies travel out of the [place] in the last 14 days. Ebola Screen: Patient denies travel to an Ebola-affected area in the 21 days before illness onset. Initial Sepsis Screen: Does the patient meet any 2 criteria? No. Patient's initial sepsis screen is negative. Does the patient have a suspected source of infection? No. Patient's initial sepsis screen is negative. Risk Assessment: Do you want to hurt yourself or someone else? Patient reports no desire to harm self or others. Onset of symptoms was December 27, 2021. 17:09 Method Of Arrival: Ambulatory ww 17:09 Acuity: ALICE 4 ww Triage Assessment: 17:10 General: Appears uncomfortable, Behavior is calm, cooperative. Pain: Complains of pain ww in lateral aspect of right hand. Neuro: Level of Consciousness is awake, alert, obeys commands, Oriented to person, place, time, situation, Gait is steady, Speech is normal. Cardiovascular: Capillary refill < 3 seconds Patient's skin is warm and dry. Respiratory: Airway is patent Respiratory effort is even, unlabored, Respiratory pattern is regular, symmetrical. GI: No signs and/or symptoms were reported involving the gastrointestinal system. : No signs and/or symptoms were reported regarding the genitourinary system. Musculoskeletal: Swelling present in right hand. Injury Description: Laceration sustained to lateral aspect of right hand. Historical: - Allergies: 17:10 No Known Allergies; ww - PMHx: 17:10 ADD/ADHD; Asthma; ww - PSHx: 17:10 None; ww - Immunization history:: Last tetanus immunization: unknown. - Social history:: Smoking status: Patient reports the use of cigarette tobacco products, smokes one-half pack cigarettes per day. Screenin:12 Abuse screen: Denies threats or abuse. Denies injuries from another. Nutritional ww screening: No deficits noted. Tuberculosis screening: No symptoms or risk factors identified. Fall Risk None identified. Assessment: 17:18 General: Appears in no apparent distress. comfortable, Behavior is calm, cooperative. lr4 Pain: Complains of pain in right hand. Neuro: No deficits noted. Cardiovascular: No deficits noted. Respiratory: No deficits noted. Injury Description: Laceration sustained to right hand is superficial, 0.5 to 2.5 cm long, bleeding minamally. 19:08 Reassessment: pt departed ed ambulatory with all personal effects Patient states lr4 feeling better. Patient states symptoms have improved. Vital Signs: 17:09 BP 128 / 74; Pulse 53; Resp 18; Temp 98.4; Pulse Ox 100% ; Weight 68.04 kg; Height 5 ww ft. 5 in. (165.10 cm); Pain 9/10; 19:27 BP 121 / 70; Pulse 59; Resp 18; Pulse Ox 99% ; lr4 17:09 Body Mass Index 24.96 (68.04 kg, 165.10 cm) ww ED Course: 16:53 Patient arrived in ED. ds1 17:06 Donny Hidalgo PA is PHCP. [facility] 17:07 Maurizio Mckeon MD is Attending Physician. [facility] 17:10 Triage completed. ww 17:12 Arm band placed on left wrist. ww 17:17 Lalita Min, RN is Primary Nurse. lr4 19:07 Patient has correct armband on for positive identification. Bed in low position. Call lr4 light in reach. Side rails up X 1. 19:07 No provider procedures requiring assistance completed. Patient did not have IV access lr4 during this emergency room visit. Administered Medications: 18:18 Drug: Lidocaine (1 %) 20 ml {Note: given by provider.} Volume: 20 ml; Route: lr4 Infiltration; 18:18 Follow up: Response: No adverse reaction lr4 18:26 Drug: Tetanus-Diphtheria Toxoid Adult 0.5 ml {[employer] Operator: [employer]. Exp: lr4 03/07/2023. Lot #: [id number]. } Route: IM; Site: right deltoid; 19:08 Follow up: Response: No adverse reaction lr4 Outcome: 19:06 Discharge ordered by . [facility] 19:07 Discharged to home ambulatory. lr4 19:07 Condition: good 19:07 Discharge instructions given to patient. 19:28 Patient left the ED. lr4 Signatures: Donny Hidalgo PA PA jmm Sanford, Demi ds1 Jaylin Yang, RN RN ww Lalita Min RN RN lr4
[2021-12-27 19:50] VITALS: TEMP 98.4
[2021-12-27 19:52] VITALS: BP 121/70; O2SAT 99
== END 2021-12-27 19:28 | disposition home or self-care (01) ==
LOC: ER 16:52
PROC: 0JQJ0ZZ Repair Right Hand Subcutaneous Tissue and Fascia, Open Approach (ICD-10-PCS; principal; 2021-12-27)
DX: S61.411A Laceration without foreign body of right hand, initial encounter (principal); W26.8XXA Contact with other sharp object(s), not elsewhere classified, initial encounter; Y92.89 Other specified places as the place of occurrence of the external cause; Y99.8 Other external cause status; Z23 Encounter for immunization; F17.210 Nicotine dependence, cigarettes, uncomplicated
CPT/HCPCS: 90471; 90714; 99283

== ENCOUNTER 2023-08-20 11:07 | Emergency (ER) | payer OTHER ==
[2023-08-20 11:39] LABS: Absolute Lymphocytes (CBC) 2.8 K/uL (0.7-4.9); Hematocrit 43.5 % (39.6-49.0); Lymphocytes % 47.1 % (15.3-44.8); MCV 90.6 fL (80-100); MPV 10.2 fL (7.6-11.3); Platelets 173 thou/uL (152-406)
--- NOTE | 2023-08-20 11:43 | RAD REPORT ---
EXAM DESCRIPTION: CT - Head Brain Wo Cont - 08/20/2023 11:37 am CLINICAL HISTORY: syncope vs seizure COMPARISON: No comparisons TECHNIQUE: All CT scans are performed using dose optimization technique as appropriate and may inclu de automated exposure control or mA/KV adjustment according to patient size. FINDINGS: No intracranial hemorrhage, hydrocephalus or extra-axial fluid collection.No areas of brai n edema or evidence of midline shift. Mucosal thickening left maxillary sinus. The calvarium is intact. IMPRESSION: No acute intracranial abnormality.
[2023-08-20 11:46] LABS: Protime INR 1.2
[2023-08-20] MEDS ORDERED: NA CHLORIDE 0.9% 1,000 ML ONE (11:54)
--- NOTE | 2023-08-20 11:59 | RAD REPORT ---
EXAM DESCRIPTION: RAD - Chest Single View - 08/20/2023 11:55 am CLINICAL HISTORY: syncope vs seizure COMPARISON: No comparisons FINDINGS: Lines: None. Lungs: No evidence of edema or pneumonia. Pleural: No significant pleural effusions or pneumothorax. Cardiac: The heart size is within normal limits. Mediastinum: Within normal limits. Bones: No acute fractures. Other: None IMPRESSION: No acute cardiopulmonary disease.
[2023-08-20 12:17] LABS: Albumin 4.1 g/dL (3.4-5.0); Bilirubin Direct 0.2 mg/dL (0-0.2); Bilirubin Indirect, Calculated 0.6 mg/dL (0.2-0.8); Bilirubin Total 0.8 mg/dL (0.2-1.0); Magnesium 2.3 mg/dL (1.6-2.4); Potassium 3.5 mEq/L (3.5-5.1); Protein, Total 8.2 g/dL (6.4-8.2); Troponin High Sensitivity 6.5 pg/mL (<58.9)
--- NOTE | 2023-08-20 12:42 | ER ---
Nurse's Notes [facility] Name: Vicente Villeda Age: 23 yrs Sex: Male : 2000 Arrival Date: 08/20/2023 Time: 11:07 Bed 14 Private MD: Diagnosis: Syncope;Possible seizure Presentation: 08/20 11:17 Chief complaint: Syncopal episode after rising from bed today. Had another syncopal hb episode a few days ago. Also c/o nausea and mild dizziness today. Coronavirus screen: At this time, the client does not indicate any symptoms associated with coronavirus-19. Ebola Screen: No symptoms or risks identified at this time. Initial Sepsis Screen: Does the patient meet any 2 criteria? No. Patient's initial sepsis screen is negative. Does the patient have a suspected source of infection? No. Patient's initial sepsis screen is negative. Risk Assessment: Do you want to hurt yourself or someone else? Patient reports no desire to harm self or others. Onset of symptoms was August 20, 2023. 11:17 Method Of Arrival: Ambulatory hb 11:17 Acuity: ALICE 3 hb Historical: - Allergies: 11:21 No Known Allergies; hb - PMHx: 11:21 ADD/ADHD; Asthma; hb - PSHx: 11:21 None; hb - Immunization history:: Adult Immunizations up to date. - Social history:: Smoking status: Patient denies any tobacco usage or history of. Screenin:18 [facility] ED Fall Risk Assessment (Adult) History of falling in the last 3 months, db including since admission No falls in past 3 months (0 pts) Score/Fall Risk Level 0 - 2 = Low Risk Oriented to surroundings, Maintained a safe environment. Abuse screen: Denies threats or abuse. Denies injuries from another. Nutritional screening: No deficits noted. Tuberculosis screening: No symptoms or risk factors identified. Assessment: 11:15 Reassessment: Patient appears in no apparent distress at this time. Patient and/or db family updated on plan of care and expected duration. Pain level reassessed. Patient is alert, oriented x 3, equal unlabored respirations, skin warm/dry/pink. General: Appears in no apparent distress. comfortable, Behavior is calm, cooperative. Pain: Denies pain. Neuro: Level of Consciousness is awake, alert, obeys commands, Oriented to person, place, time, situation. 12:00 Reassessment: Patient appears in no apparent distress at this time. Patient and/or db family updated on plan of care and expected duration. Pain level reassessed. Patient is alert, oriented x 3, equal unlabored respirations, skin warm/dry/pink. Respiratory: No deficits noted. Airway is patent Respiratory effort is even, unlabored, Respiratory pattern is regular, symmetrical. 13:00 Reassessment: Patient appears in no apparent distress at this time. Patient and/or db family updated on plan of care and expected duration. Pain level reassessed. Patient is alert, oriented x 3, equal unlabored respirations, skin warm/dry/pink. Patient states feeling better. Patient states symptoms have improved. Vital Signs: 11:17 BP 116 / 69; Pulse 59; Resp 16; Temp 98.5(O); Pulse Ox 98% on R/A; Weight 68.04 kg; hb Height 5 ft. 5 in. ; Pain 6/10; 12:03 BP 125 / 90 Supine; Pulse 65; aw1 12:03 BP 108 / 66 Sitting; Pulse 72; aw1 12:03 BP 123 / 70 Standing; Pulse 68; aw1 12:30 BP 117 / 80; Pulse 84; Resp 16; Pulse Ox 99% on R/A; db 11:17 Body Mass Index 24.96 (68.04 kg, 165.1 cm) hb 11:17 Pain Scale: Adult hb ED Course: 11:10 Patient arrived in ED. rg4 11:10 Vick Fairbanks MD is Attending Physician. rn 11:21 Triage completed. hb 11:21 Arm band placed on. hb 11:34 Jacinta Greene, RN is Primary Nurse. db 11:38 CT Head Brain wo Cont In Process Unspecified. EDMS 11:47 EKG done, by ED staff. aw1 11:57 Chest Single View XRAY In Process Unspecified. EDMS 13:18 Patient has correct armband on for positive identification. Bed in low position. Call db light in reach. Side rails up X 1. Provided Education on: DISCHARGE. Client placed on continuous cardiac and pulse oximetry monitoring. NIBP monitoring applied. Warm blanket given. 13:18 No provider procedures requiring assistance completed. IV discontinued, intact, db bleeding controlled, No redness/swelling at site. Administered Medications: 11:43 Drug: NS 0.9% IV 1000 ml IV at 1000 ml once Route: IV; Rate: 1000 ml; Site: right eh3 antecubital; 12:30 Follow up: Response: No adverse reaction; IV Status: Completed infusion; IV Intake: db 1000ml Medication: 13:18 VIS not applicable for this client. db Intake: 12:30 IV: 1000ml; Total: 1000ml. db Outcome: 12:41 Discharge ordered by . rn 13:18 Discharged to home ambulatory, db 13:18 Condition: stable 13:18 Discharge instructions given to patient, Instructed on discharge instructions, follow up and referral plans. 13:20 Patient left the ED. db Signatures: Dispatcher [employer] EDMS Vick Fairbanks MD MD rn Baxter, Heather RN RN Patti Altamirano 4 Nicky Jacob RN RN 3 Jacinta Greene RN RN Matilde Cat aw1 Corrections: (The following items were deleted from the chart) 11:25 11:17 BP 116 / 69; Pulse 56bpm; Resp 16bpm; Pulse Ox 98% RA; hb hb
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
[2023-08-20 13:30] VITALS: TEMP 98.5
[2023-08-20 13:33] VITALS: BP 117/80; O2SAT 99
== END 2023-08-20 13:20 | disposition home or self-care (01) ==
LOC: ER 11:07
DX: R55 Syncope and collapse (principal); R51.9 Headache, unspecified
CPT/HCPCS: 93005; 85025; 80048; 36415; 83735; 85610; 80076; 85730; 84484; 70450; 71045; 96360; 99284; J7030